=== PATIENT | female | born 1975 ===

== ENCOUNTER 2021-12-22 08:45 | Inpatient (IN) | payer OTHER ==
[~2021-12-22] VITALS: Ht 162.6 cm; Wt 104.3 kg
[2021-12-22] MEDS ORDERED: SYNTHROID88 MCG PO (10:08)
[2021-12-22] MEDS ORDERED: ACTOS15 MG (10:08)
[2021-12-22] MEDS ORDERED: BUPRO PO (10:08)
[2021-12-22] MEDS ORDERED: CLONAZE PO (10:09)
[2021-12-22] MEDS ORDERED: LORAZE PO (10:09)
[2021-12-27] MEDS ORDERED: LAMOTRIGINE25 M1 (08:15)
[2021-12-27] MEDS ORDERED: BUPROPION XL150 MG (08:15)
[2021-12-27] MEDS ORDERED: CLONAZEPAM0.5 MG (08:15)
[2021-12-27] MEDS ORDERED: MEGESTROL ACETA40 MG (08:15)
[2021-12-27] MEDS ORDERED: FLUOXETINE HCL20 M1 (08:15)
[2021-12-27] MEDS ORDERED: ATIVAN0.5 M1 (08:17)
== END 2021-12-29 16:39 | disposition home or self-care (01) | DRG 743 ==
LOC: SURG 12-26 08:45 → OB/GYN 12-26 16:51 → O/R 12-26 16:51 → OB/GYN 12-26 18:36
PROVIDERS: ADMIT Student in an Organized Health Care Education/Training Program; ATTEND Student in an Organized Health Care Education/Training Program
PROC: 0UT70ZZ Resection of Bilateral Fallopian Tubes, Open Approach (ICD-10-PCS; 2021-12-26)
PROC: 0UT20ZZ Resection of Bilateral Ovaries, Open Approach (ICD-10-PCS; 2021-12-26)
PROC: 0UT90ZZ Resection of Uterus, Open Approach (ICD-10-PCS; principal; 2021-12-26 16:45)
DX: D25.1 Intramural leiomyoma of uterus (principal); D25.2 Subserosal leiomyoma of uterus; N72 Inflammatory disease of cervix uteri; Z20.822 Contact with and (suspected) exposure to COVID-19